=== PATIENT | female | born 1990 | race Caucasian/White ===

== ENCOUNTER 2024-01-02 23:38 | Emergency (ER) | payer MEDICAID ==
[~2024-01-02] VITALS: Ht 165.1 cm; Wt 84.0 kg
[2024-01-03 00:08] VITALS: BP 105/70; PULSE 65; RESP 18; TEMP 98.9; O2SAT 100
[2024-01-03 00:39] LABS: HEMOGLOBIN. 12.1 g/dL (12.0-16.0); LYMPHOCYTES % 42.3 % (20.0-50.0); MEAN CORPUSCULAR HEMOGLOBIN 30.3 pg (28.0-32.0); MEAN CORPUSCULAR HGB CONC 33.7 g/dL (31.0-37.0); MEAN CORPUSCULAR VOLUME 89.8 fL (81.0-99.0); MEAN PLATELET VOLUME 7.2 fl (7.4-10.4); MONOCYTES % 12.5 % (2.0-8.0); NEUTROPHILS % 41.2 % (40.0-76.0); PLATELET 330 x1000/uL (130-400); RED BLOOD CELL COUNT 4.01 mill/uL (4.2-5.4); RED CELL DISTRIBUTION WIDTH 13.5 % (11.6-14.6); WHITE BLOOD COUNT 7.2 x1000/uL (4.5-11.0)
[2024-01-03 00:48] LABS: CHLORIDE 105 mEq/L (98-107); SODIUM 137 mEq/L (136-145)
[2024-01-03 00:49] LABS: CALCIUM 9.1 mg/dL (8.7-10.4); CARBON DIOXIDE 26 mEq/L (21-32)
[2024-01-03 00:54] LABS: CREATININE 0.8 mg/dL (0.6-1.0); GLUCOSE 101 mg/dL (70-105); UREA NITROGEN BLOOD 9 mg/dL (9-23)
[2024-01-03 00:55] LABS: B-HCG QUANTITATIVE > 1000 mIU/mL (<3)
== END 2024-01-03 03:19 | disposition home or self-care (01) ==
LOC: EDSEX 01-03 00:07 → ER 01-03 00:07
DX: O26.891 Other specified pregnancy related conditions, first trimester (principal); R10.9 Unspecified abdominal pain; Z3A.01 Less than 8 weeks gestation of pregnancy
CPT/HCPCS: 36415; 76801; 80048; 84702; 85025; 99284